=== PATIENT | male | born 1970 | race Caucasian/White ===

== ENCOUNTER → 2017-02-04 | Outpatient (CLI) | payer OTHER ==
[~2017-02-04] MED LIST: CARV6.252 PO; CHEMOTHERAPY; GADOBUTROL 10 MMOL/10 ML PFS ONE; HYDR-3307 PO; LATA2.5D3 EACHEYE; WARF10TA PO; WARF7.5T6 PO
== END | disposition home or self-care (01) ==
LOC: CFH 10:16
PROVIDERS: ATTEND Specialist
DX: C41.2 Malignant neoplasm of vertebral column (principal); M47.812 Spondylosis without myelopathy or radiculopathy, cervical region; Z98.890 Other specified postprocedural states
CPT/HCPCS: 72156; A9585